=== PATIENT | male | born 1965 | race Caucasian/White ===

== ENCOUNTER 2018-06-22 16:02 | Emergency (ER) | payer SELFPAY ==
[~2018-06-22] VITALS: Ht 175.3 cm; Wt 111.1 kg
[2018-06-22 16:10] VITALS: BP 133/96
[2018-06-22] MEDS ORDERED: CYCL5TAB PO (16:46)
--- NOTE | 2018-06-22 16:48 | PHYS DOC ---
Adult General Chief Complaint Chief Complaint: SHOULDER INJURY HPI HPI Patient is a 52 year old male who presents with right shoulder pain radiating into his arm 2 days. He has been using a heating pad and states that it has given some relief. He denies any known injury. He states that it primarily started when he was driving from [place] and thought that maybe it was either caused by the long drive or sleeping funny on his shoulder. Review of Systems Review of Systems Constitutional: Denies fever or chills [] Respiratory: Denies cough or shortness of breath [] Cardiovascular: No additional information not addressed in HPI [] GI: Denies abdominal pain, nausea, vomiting, bloody stools or diarrhea [] : Denies dysuria or hematuria [] Musculoskeletal: See history of present illness Integument: Denies rash or skin lesions [] Neurologic: Denies headache, focal weakness or sensory changes [] Endocrine: Denies polyuria or polydipsia [] All other systems were reviewed and found to be within normal limits, except as documented in this note. Physical Exam Physical Exam Constitutional: Well developed, well nourished, no acute distress, non-toxic appearance. [] Neck: Normal range of motion, no tenderness, supple, no stridor, mild tenderness to right trapezius. [] Cardiovascular:Heart rate regular rhythm, no murmur [] Lungs & Thorax: Bilateral breath sounds clear to auscultation [] Skin: Warm, dry, no erythema, no rash. [] Back: No tenderness, no CVA tenderness. [] Extremities: Tenderness to his pectoralis muscles with palpation, no gross deformity noted, no erythema or ecchymosis noted, ROM intact, no edema, pulses and sensation are intact distal to pain Neurologic: Alert and oriented X 3, normal motor function, normal sensory function, no focal deficits noted. [] Psychologic: Affect normal, judgement normal, mood normal. [] EKG EKG [] Radiology/Procedures Radiology/Procedures [] Course & Med Decision Making Course & Med Decision Making Pertinent Labs and Imaging studies reviewed. (See chart for details) [] Dragon Disclaimer Dragon Disclaimer This electronic medical record was generated, in whole or in part, using a voice recognition dictation system. Departure Departure Impression: Primary Impression: Shoulder strain Disposition: 01 HOME, SELF-CARE Condition: STABLE Patient Instructions: Shoulder Exercises, Generic, SportsMed, Shoulder Pain Additional Instructions: Use the medication as directed. Do not drive or operate heavy machinery and 29 reactive that medication. You may use your at home tramadol to help with pain relief. You may also try ibuprofen or Tylenol. Continue to use a heating pad for comfort. Follow-up with your primary care provider for possible referral to orthopedics if not improving in one week. I have attached exercises. You may start these shoulder exercises when your severe pain has resolved. Scripts Cyclobenzaprine Hcl (CYCLOBENZAPRINE HCL) 5 Mg Tablet 1 TAB PO QHS for muscle spasm, #30 TAB Prov: BOB ESPARZA APRN 06/22/18 BOB ESPARZA APRN Jun 22, 2018 16:48
== END 2018-06-22 16:55 | disposition home or self-care (01) ==
LOC: ER 16:02
DX: S46.811A Strain of other muscles, fascia and tendons at shoulder and upper arm level, right arm, initial encounter (principal); X58.XXXA Exposure to other specified factors, initial encounter; Y93.89 Activity, other specified; Y92.89 Other specified places as the place of occurrence of the external cause; Y99.8 Other external cause status
CPT/HCPCS: 99283